=== PATIENT | male | born 1970 | race Caucasian/White ===

== ENCOUNTER 2018-04-01 00:49 | Emergency (ER) | payer MEDICAID, OTHER ==
[~2018-04-01] VITALS: Ht 177.8 cm; Wt 106.6 kg
[~2018-04-01 00:49] MED LIST: ACET-1635 PO; [UNRECOGNIZED DRUG - OTHER]
[2018-04-01 00:51] VITALS: BP 126/54
[2018-04-01 01:02] VITALS: BP 134/94
--- NOTE | 2018-04-01 01:11 | NUR ---
pt ambulated to bed 1 with vss.
--- NOTE | 2018-04-01 01:12 | NUR ---
PT came in to ER with C/O pain to the abdominal region. Radiates to the right side x 3 days. Today the pain was was severe. Pain upon assessment of papation, tender to touch. Bowl sounds in all 4 Q active. PT had a regualr BM today but prior, had diarrhea. KNA. Medical HX was HTN. SKIN IS PINK/WARM/DRY; AAOX4 WITH EVEN AND STEADY GAIT; PT DENIES ANY FEVER, CP AT THIS TIME; PT HAS STATED THAT HE HAS HAD SOME SOB FOR THE LAST FEW DAYS. PATIENT STATES PAIN OF 10/10 AT THIS TIME; VSS; PATIENT POSITIONED FOR COMFORT; HOB ELEVATED; BEDRAILS UP X2; BED DOWN. ER MD MADE AWARE OF PT STATUS.
[2018-04-01] MEDS ORDERED: MORPHINE SULFATE 4 MG/ML SYR IVP ONE (01:30)
[2018-04-01] MEDS ORDERED: ONDANSETRON 4 MG/2 ML VIAL IVP ONE (01:30)
[2018-04-01] MEDS ORDERED: NACL 0.9% 1,000 ML IV SCH (01:30)
[2018-04-01 01:44] LABS: BASOPHILS % (AUTO) 0.4 % (0.0-2.0); EOSINOPHILS # (AUTO) 0.2 K/uL (0-0.4); EOSINOPHILS % (AUTO) 2.6 % (0.0-4.0); HEMATOCRIT 52.1 % (36-52); HEMOGLOBIN 17.4 g/dL (12.0-18.0); LYMPHOCYTES # (AUTO) 1.8 K/uL (2.0-11.5); LYMPHOCYTES % (AUTO) 19.2 % (20.5-51.1); MEAN CORPUSCULAR HEMOGLOBIN 27 pg (27-31); MEAN CORPUSCULAR HGB CONC 33 g/dL (33-37); MEAN CORPUSCULAR VOLUME 81.5 fL (80-94); MONOCYTES # (AUTO) 0.8 K/uL (0.8-1.0); MONOCYTES % (AUTO) 9.1 % (1.7-9.3); NEUTROPHILS # (AUTO) 6.3 K/uL (1.8-7.7); NEUTROPHILS % (AUTO) 68.7 % (42.2-75.2); PLATELET COUNT (AUTO) 263 K/uL (140-450); WHITE BLOOD COUNT (AUTO) 9.2 K/uL (4.8-10.8)
[2018-04-01 02:00] LABS: POTASSIUM 3.6 mmol/L (3.5-5.1)
[2018-04-01 02:01] LABS: ANION GAP 12.7 (8-16); CARBON DIOXIDE 25.9 mmol/L (21-32); CREATININE 1.4 mg/dL (0.7-1.3)
[2018-04-01 02:05] LABS: TOTAL BILIRUBIN 0.6 mg/dL (0.0-1.0)
[2018-04-01 02:06] LABS: ALBUMIN 3.8 g/dL (3.4-5.0)
--- NOTE | 2018-04-01 02:35 | NUR ---
PT IS RESTING IN BED. PT STATED THAT HIS PAIN LEVEL HAS DECREASEDTO A LEVEL 6/10.
--- NOTE | 2018-04-01 02:58 | NUR ---
Grady gomez in ED - 04/01/18 at 0259 by JOSSELINE PT AMBULATED TO THE RESTROOM. GAVE NON SKID SOCKS FOR AMBUALTION AND COMFORT. PT TOLERATED WELL.
--- NOTE | 2018-04-01 05:08 | NUR ---
Patient discharged with v/s stable. Written and verbal after care instructions given and explained. Patient alert, oriented and verbalized understanding of instructions. Ambulatory with to car. All questions addressed prior to discharge. ID band removed. Patient advised to follow up with PMD. Rx of ZOFRAN, MOTRIN, AND NORCO WERE given. Patient educated on indication of medication including possible reaction and side effects. Opportunity to ask questions provided and answered.
[2018-04-01 05:09] VITALS: BP 121/85
== END 2018-04-01 05:08 | disposition home or self-care (01) ==
LOC: MED 00:49
DX: R10.31 Right lower quadrant pain (principal); R11.2 Nausea with vomiting, unspecified; I10 Essential (primary) hypertension
CPT/HCPCS: 36415; 74176; 80053; 81002; 83690; 85025; 93005; 96374; 96375; 99285; J2270; J2405; J7030; 96361